=== PATIENT | male | born 1950 | race Hispanic/Latino ===

== ENCOUNTER 2024-08-02 18:39 | Inpatient (IN) | payer MEDICAID, SELFPAY ==
[~2024-08-02 18:39] MED LIST: Iopamidol-370 76% 500 ML MDV (1 ML CHARGE) ONE
[2024-08-02 19:14] LABS: %Eosinophils 3.1 % (0.0-10.0); %Lymphocytes 43.5 % (21.0-51.0); %Monocytes 6.8 % (0.0-10.0); %Neutrophils 43.6 % (42.0-75.0); Hematocrit 36.2 % (42.0-52.0); Hemoglobin 12.5 g/dL (14.0-18.0); Mean Corpuscular HGB CONC 34.5 g/dL (32.0-36.0); Mean Corpuscular Volume 104.3 fL (78.0-98.0); Mean Platelet Volume 10.5 fL (7.4-10.4); Platelet Count 206 10x3/uL (130-400); RBC Distribution Width 12.1 % (11.5-14.5); Red Blood Cell (RBC) Count 3.47 mill/uL (4.70-6.10)
[2024-08-02 19:26] LABS: Alcohol 270.2 mg/dL (Less than 10)
[2024-08-02 19:27] LABS: INR-International Normal Ratio 1.2; PTT 30.9 sec (22.9-36.1); Prothrombin Time 15.5 sec (12.0-14.7)
[2024-08-02] MEDS ORDERED: fentaNYL 50 mcg/mL 1 mL Vial ONE (19:28)
[2024-08-02 19:29] LABS: ALT (SGPT) 32 U/L (8-55); AST (SGOT) 67 U/L (5-34); Albumin 3.5 g/dL (3.4-4.8); Alkaline Phosphatase 95 U/L (40-110); Anion Gap 16 mmol/L (10-20); BUN (Urea Nitrogen) 5 mg/dL (8.4-25.7); Bilirubin, Total 0.5 mg/dL (0.2-1.2); Calc. Creatinine Clearance 0 mL/min (70-130); Calcium 8.2 mg/dL (7.8-10.44); Carbon Dioxide 20 mmol/L (23-31); Chloride 100 mmol/L (98-107); Estimated GFR 69; Glucose 119 mg/dL (83-110); Lipase 35 U/L (8-78); Potassium 2.9 mmol/L (3.5-5.1); Protein, Total 7.5 g/dL (5.8-8.1); Sodium 133 mmol/L (136-145)
[2024-08-02 19:33] LABS: Troponin I Less than 0.010 ng/mL (< 0.028)
[2024-08-02] MEDS ORDERED: CEFAZOLIN 2 GM VIAL ONE (19:33)
[2024-08-02] MEDS ORDERED: Boostrix 0.5 ML (Tdap) VIAL (>/=7 yrs of age) ONE (19:39)
[2024-08-02 19:52] LABS: Bacteria/HPF None Seen HPF (None Seen); Bilirubin Negative (Negative); Blood, Urine Trace (Negative); CAUTI Indications for Culture Spinal Cord Injury; Clarity Clear (Clear); Glucose, Urine (Dipstick) Normal (Negative); Ketone, Urine Negative (Negative); Leukocyte Negative Leu/uL (Negative); Nitrite Negative (Negative); Protein, Urine (Dipstick) Negative (Neg-Trace); RBC/HPF None Seen HPF (0-3); Squamous Epithelial None Seen HPF (0-3); Urobilinogen Normal mg/dL (Less than 2); WBC/HPF None Seen HPF (0-3); pH, Urine 5.5 (5.0-9.0)
[2024-08-02 19:53] LABS: Specific Gravity, Urine 1.002 (1.002-1.036); Urine Culture Reflex No No
[2024-08-02 19:57] LABS: Amphetamine Not Detected (NotDetected); Barbiturates Screen Not Detected (NotDetected); Benzodiazepine Screen Not Detected (NotDetected); Cocaine Metabolite Screen Not Detected (NotDetected); Methadone Not Detected (NotDetected); Methamphetamine Not Detected (NotDetected); Opiate Screen Not Detected (NotDetected); Oxycodone Screen Not Detected (NotDetected); Phencyclidine (PCP) Not Detected (NotDetected); THC/Cannabinoid Screen Not Detected (NotDetected); Tricyclic Screen Not Detected (NotDetected)
[2024-08-02] MEDS ORDERED: Insulin Regular, Human 100 UNIT/ML 10 ML VIAL SC PRN (21:03)
[2024-08-02] MEDS ORDERED: Dextrose 5% in Water 1,000 ML IV PRN (21:03)
[2024-08-02] MEDS ORDERED: Insulin Lispro 100 UNIT/ML 10 ML VIAL SC PRN (21:03)
[2024-08-02] MEDS ORDERED: Ondansetron PF 4 MG/2 ML Vial IVP PRN (21:03)
[2024-08-02] MEDS ORDERED: Glucagon 1 MG/ML KIT IM PRN (21:03)
[2024-08-02] MEDS ORDERED: Acetaminophen 325 MG TAB PO PRN (21:03)
[2024-08-02] MEDS ORDERED: NOREPINEPHRINE 8 MG/250 ML-D5W 250 ML ONE (21:23)
[2024-08-02 22:24] LABS: #Basophils 0.04 10x3/uL (0.0-0.2); #Eosinophils Less than 0.03 10x3/uL (0.0-0.7); %Basophils 0.3 % (0.0-1.0); %Eosinophils 0.1 % (0.0-10.0); %Lymphocytes 6.3 % (21.0-51.0); %Monocytes 8.9 % (0.0-10.0); %Neutrophils 83.3 % (42.0-75.0); Hematocrit 22.6 % (42.0-52.0); Hemoglobin 7.8 g/dL (14.0-18.0); Mean Corpuscular HGB CONC 34.5 g/dL (32.0-36.0); Mean Corpuscular Hemoglobin 35.3 pg (27.0-31.0); Mean Corpuscular Volume 102.3 fL (78.0-98.0); Mean Platelet Volume 10.6 fL (7.4-10.4); Platelet Count 121 10x3/uL (130-400); RBC Distribution Width 14.2 % (11.5-14.5); Red Blood Cell (RBC) Count 2.21 mill/uL (4.70-6.10)
[2024-08-02 22:33] LABS: INR-International Normal Ratio 1.4; Prothrombin Time 16.7 sec (12.0-14.7)
[2024-08-02 22:43] LABS: Anisocytosis SLIGHT = 6-15 cells HPF (0-5); Burr Cells SLIGHT = 2-5 cells HPF (0-1); Macrocytosis SLIGHT = 6-15 cells HPF (0-5); Platelet Adequacy Comment Platelets Decreased
[2024-08-02 22:53] LABS: Troponin I Less than 0.010 ng/mL (< 0.028)
[2024-08-02 23:05] LABS: Anion Gap 17 mmol/L (10-20); Calcium 7.1 mg/dL (7.8-10.44); Carbon Dioxide 16 mmol/L (23-31); Chloride 102 mmol/L (98-107); Potassium 2.8 mmol/L (3.5-5.1); Sodium 132 mmol/L (136-145)
[2024-08-02 23:28] LABS: Alcohol 168.9 mg/dL (Less than 10)
[2024-08-02 23:44] LABS: ALT (SGPT) 21 U/L (8-55); AST (SGOT) 59 U/L (5-34); Albumin 2.4 g/dL (3.4-4.8); Alkaline Phosphatase 54 U/L (40-110); BUN (Urea Nitrogen) 6 mg/dL (8.4-25.7); Bilirubin, Total 0.5 mg/dL (0.2-1.2); Calc. Creatinine Clearance 0 mL/min (70-130); Estimated GFR 99; Globulin 2.3 g/dL (2.4-3.5); Glucose 185 mg/dL (83-110); Lipase 25 U/L (8-78); Protein, Total 4.7 g/dL (5.8-8.1)
[2024-08-03] MEDS ORDERED: Electrolyte Replacement Protocol 1 EACH FS SCH ×2 (01:15→08:30)
[2024-08-03] MEDS: Morphine 2 MG/ML VIAL SLOW IVP PRN ×2 (01:26→23:42)
[2024-08-03] MEDS: Sodium Chloride 0.9% 1,000 ML IV SCH (01:48)
[2024-08-03] MEDS: Albumin 25% 25 GM (100 mL) BOT IVPB SCH (01:48)
[2024-08-03] MEDS: Potassium Chloride 20 MEQ in Premix 1 BAG IVPB SCH (01:58)
[2024-08-03 03:43] LABS: Hematocrit 22.3 % (42.0-52.0); Hemoglobin 7.7 g/dL (14.0-18.0); Mean Corpuscular HGB CONC 34.5 g/dL (32.0-36.0); Mean Corpuscular Hemoglobin 33.6 pg (27.0-31.0); Mean Corpuscular Volume 97.4 fL (78.0-98.0); Platelet Count 108 10x3/uL (130-400); RBC Distribution Width 15.9 % (11.5-14.5); Red Blood Cell (RBC) Count 2.29 mill/uL (4.70-6.10)
[2024-08-03 04:06] LABS: Anion Gap 22 mmol/L (10-20); BUN (Urea Nitrogen) 7 mg/dL (8.4-25.7); Calc. Creatinine Clearance 66 mL/min (70-130); Calcium 7.7 mg/dL (7.8-10.44); Carbon Dioxide 15 mmol/L (23-31); Chloride 101 mmol/L (98-107); Estimated GFR 92; Glucose 181 mg/dL (83-110); Potassium 3.1 mmol/L (3.5-5.1); Sodium 135 mmol/L (136-145)
[2024-08-03 04:17] LABS: Band 22 % (5-11); Lymphocytes 1 % (21-51); Monocytes 3 % (0-10); Myelocyte 1 % (0-0); Neutrophil 74 % (42-75); Platelet Adequacy Comment Platelets Decreased; RBC Morphology Within Normal Limits
[2024-08-03] MEDS ORDERED: NOREPINEPHRINE 8 MG/250 ML-D5W 250 ML IVPB SCH (06:30)
[2024-08-03] MEDS ORDERED: Lorazepam 1 MG TAB PO PRN (08:19)
[2024-08-03] MEDS ORDERED: Ondansetron ODT 4 MG TAB PO PRN (08:19)
[2024-08-03] MEDS ORDERED: Lorazepam 2 MG/ML VIAL IM PRN (08:19)
[2024-08-03] MEDS ORDERED: Electrolyte Replacement Protocol FS PRN (08:30)
[2024-08-03] MEDS: Multivit, Therapeutic 1 TAB PO SCH (09:55)
[2024-08-03] MEDS: Folic Acid 1 MG TAB PO SCH (09:55)
[2024-08-03] MEDS: traMADol HCl 50 MG TAB PO PRN (09:55)
[2024-08-03] MEDS: FLU (Fluad Triv) TS24-25 (65UP)/MF59C/PF 45 MCG/0.5 ML Syringe IM ONE (09:56)
[2024-08-03] MEDS: Thiamine HCl 200 MG/2 ML VIAL SLOW IVP SCH (09:56)
[2024-08-03] MEDS: Ketorolac Tromethamine 30 MG (1 mL) VIAL IVP SCH (11:06)
[2024-08-03 11:51] LABS: ALT (SGPT) 23 U/L (8-55); AST (SGOT) 64 U/L (5-34); Albumin 3.2 g/dL (3.4-4.8); Alkaline Phosphatase 56 U/L (40-110); Anion Gap 15 mmol/L (10-20); BUN (Urea Nitrogen) 7 mg/dL (8.4-25.7); Bilirubin, Direct 0.5 mg/dL (0.1-0.3); Bilirubin, Total 1.3 mg/dL (0.2-1.2); Calc. Creatinine Clearance 75 mL/min (70-130); Calcium 7.6 mg/dL (7.8-10.44); Carbon Dioxide 20 mmol/L (23-31); Chloride 106 mmol/L (98-107); Estimated GFR 96; Globulin 2.3 g/dL (2.4-3.5); Glucose 180 mg/dL (83-110); Magnesium 1.6 mg/dL (1.6-2.6); Protein, Total 5.5 g/dL (5.8-8.1); Sodium 136 mmol/L (136-145)
[2024-08-03] MEDS: Pantoprazole 40 MG VIAL IVP SCH (12:32)
[2024-08-03 12:52] LABS: Hematocrit 21.8 % (42.0-52.0); Hemoglobin 7.6 g/dL (14.0-18.0); Mean Corpuscular HGB CONC 34.9 g/dL (32.0-36.0); Mean Corpuscular Hemoglobin 32.9 pg (27.0-31.0); Mean Corpuscular Volume 94.4 fL (78.0-98.0); Mean Platelet Volume 11.1 fL (7.4-10.4); Platelet Count 77 10x3/uL (130-400); RBC Distribution Width 17.2 % (11.5-14.5); Red Blood Cell (RBC) Count 2.31 mill/uL (4.70-6.10)
[2024-08-03 12:54] LABS: Anisocytosis SLIGHT = 6-15 cells HPF (0-5); Band 21 % (5-11); Burr Cells SLIGHT = 2-5 cells HPF (0-1); Lymphocytes 9 % (21-51); Monocytes 9 % (0-10); Neutrophil 61 % (42-75); Platelet Adequacy Comment Platelets Decreased; Smudge Cells 14.2 %
[2024-08-03] MEDS: Magnesium 2 GM/50 ML(in water) 2 GM in Premix 1 BAG IVPB SCH (13:12)
[2024-08-03 14:25] LABS: Hematocrit 23.5 % (42.0-52.0); Hemoglobin 7.9 g/dL (14.0-18.0); Mean Corpuscular HGB CONC 33.6 g/dL (32.0-36.0); Mean Corpuscular Volume 95.1 fL (78.0-98.0); Mean Platelet Volume 11.1 fL (7.4-10.4); Platelet Count 79 10x3/uL (130-400); Red Blood Cell (RBC) Count 2.47 mill/uL (4.70-6.10)
[2024-08-03 14:49] LABS: Anisocytosis SLIGHT = 6-15 cells HPF (0-5); Band 17 % (5-11); Burr Cells SLIGHT = 2-5 cells HPF (0-1); Large Platelets 0.9 % (0-5); Lymphocytes 12 % (21-51); Monocytes 8 % (0-10); Neutrophil 62 % (42-75); Platelet Adequacy Comment Platelets Decreased; Polychromasia SLIGHT = 2-3 cells HPF (0-2); Reactive Lymphocytes 1 % (0-10); Smudge Cells 3.7 %
[2024-08-03 19:14] LABS: Hematocrit 18.1 % (42.0-52.0); Hemoglobin 6.3 g/dL (14.0-18.0); Mean Corpuscular HGB CONC 34.8 g/dL (32.0-36.0); Mean Corpuscular Hemoglobin 32.5 pg (27.0-31.0); Mean Corpuscular Volume 93.3 fL (78.0-98.0); Mean Platelet Volume 11.7 fL (7.4-10.4); Platelet Count 73 10x3/uL (130-400); RBC Distribution Width 18.5 % (11.5-14.5); Red Blood Cell (RBC) Count 1.94 mill/uL (4.70-6.10)
[2024-08-03 19:33] LABS: Band 23 % (5-11); Burr Cells SLIGHT = 2-5 cells HPF (0-1); Large Platelets 3.8 % (0-5); Lymphocytes 15 % (21-51); Monocytes 6 % (0-10); Neutrophil 56 % (42-75); Platelet Adequacy Comment Platelets Decreased; Smudge Cells 1.9 %
[2024-08-04] MEDS: Dexmedetomidine In 0.9 % NaCl 100 ML IVPB SCH (02:23)
[2024-08-04] MEDS: Lorazepam 2 MG/ML VIAL SLOW IVP PRN (02:26)
[2024-08-04 05:14] LABS: ALT (SGPT) 25 U/L (8-55); AST (SGOT) 75 U/L (5-34); Albumin 2.9 g/dL (3.4-4.8); Alkaline Phosphatase 50 U/L (40-110); Anion Gap 9 mmol/L (10-20); BUN (Urea Nitrogen) 11 mg/dL (8.4-25.7); Bilirubin, Total 1.7 mg/dL (0.2-1.2); Calc. Creatinine Clearance 95 mL/min (70-130); Calcium 7.4 mg/dL (7.8-10.44); Carbon Dioxide 22 mmol/L (23-31); Chloride 110 mmol/L (98-107); Estimated GFR 102; Globulin 2.2 g/dL (2.4-3.5); Glucose 116 mg/dL (83-110); Potassium 4.2 mmol/L (3.5-5.1); Protein, Total 5.1 g/dL (5.8-8.1); Sodium 137 mmol/L (136-145)
[2024-08-04] MEDS: Lidocaine 1% (PF) 30 ML VIAL FS SCH (06:14)
[2024-08-04] MEDS: Lidocaine 1% (PF) 30 ML VIAL ONE (06:14)
[2024-08-04 06:20] LABS: Hematocrit 19.3 % (42.0-52.0); Hemoglobin 6.5 g/dL (14.0-18.0); Mean Corpuscular HGB CONC 33.7 g/dL (32.0-36.0); Mean Corpuscular Hemoglobin 29.4 pg (27.0-31.0); Mean Corpuscular Volume 87.3 fL (78.0-98.0); Mean Platelet Volume 11.1 fL (7.4-10.4); Platelet Count 62 10x3/uL (130-400); RBC Distribution Width 23.9 % (11.5-14.5); Red Blood Cell (RBC) Count 2.21 mill/uL (4.70-6.10)
[2024-08-04 06:56] LABS: Anisocytosis SLIGHT = 6-15 cells HPF (0-5); Band 23 % (5-11); Eosinophils 2 % (0-10); Lymphocytes 5 % (21-51); Macrocytosis SLIGHT = 6-15 cells HPF (0-5); Monocytes 3 % (0-10); Neutrophil 66 % (42-75); Nucleated RBC (Manual Ct) 1 % (0); Platelet Adequacy Comment Platelets Decreased; Polychromasia SLIGHT = 2-3 cells HPF (0-2); Smudge Cells 8.7 %
[2024-08-04] MEDS ORDERED: Lorazepam 1 MG TAB PO PRN (08:19)
[2024-08-04] MEDS ORDERED: Folic Acid 5 MG/ML MDV SC SCH (09:00)
[2024-08-04 09:33] LABS: #Basophils Less than 0.03 10x3/uL (0.0-0.2); %Basophils 0.3 % (0.0-1.0); %Eosinophils 0.6 % (0.0-10.0); %Lymphocytes 13.2 % (21.0-51.0); %Monocytes 8.5 % (0.0-10.0); %Neutrophils 76.9 % (42.0-75.0); Hematocrit 18.4 % (42.0-52.0); Hemoglobin 6.2 g/dL (14.0-18.0); Mean Corpuscular HGB CONC 33.7 g/dL (32.0-36.0); Mean Corpuscular Hemoglobin 29.7 pg (27.0-31.0); Mean Platelet Volume 10.6 fL (7.4-10.4); Platelet Count 64 10x3/uL (130-400); Red Blood Cell (RBC) Count 2.09 mill/uL (4.70-6.10)
[2024-08-04] MEDS: Folic Acid 0.4 MG in Admixture Fee 1 EACH SC SCH (11:51)
[2024-08-04 14:38] LABS: Hematocrit 26.7 % (42.0-52.0); Hemoglobin 9.2 g/dL (14.0-18.0); Mean Corpuscular HGB CONC 34.5 g/dL (32.0-36.0); Mean Corpuscular Hemoglobin 30.2 pg (27.0-31.0); Mean Corpuscular Volume 87.5 fL (78.0-98.0); Mean Platelet Volume 10.7 fL (7.4-10.4); Platelet Count 66 10x3/uL (130-400); RBC Distribution Width 21.2 % (11.5-14.5); Red Blood Cell (RBC) Count 3.05 mill/uL (4.70-6.10)
[2024-08-04 14:48] LABS: INR-International Normal Ratio 1.3; PTT 34.4 sec (22.9-36.1); Prothrombin Time 15.7 sec (12.0-14.7)
[2024-08-04 15:02] LABS: Anisocytosis SLIGHT = 6-15 cells HPF (0-5); Band 11 % (5-11); Burr Cells SLIGHT = 2-5 cells HPF (0-1); Eosinophils 1 % (0-10); Lymphocytes 13 % (21-51); Monocytes 7 % (0-10); Myelocyte 1 % (0-0); Neutrophil 67 % (42-75); Platelet Adequacy Comment Platelets Decreased; Polychromasia SLIGHT = 2-3 cells HPF (0-2); Reactive Lymphocytes 1 % (0-10)
[2024-08-05] MEDS: Morphine 2 MG/ML VIAL SLOW IVP SCH (04:04)
[2024-08-05 05:58] LABS: Hematocrit 23.6 % (42.0-52.0); Hemoglobin 8.2 g/dL (14.0-18.0); Mean Corpuscular HGB CONC 34.7 g/dL (32.0-36.0); Mean Corpuscular Hemoglobin 30.7 pg (27.0-31.0); Mean Corpuscular Volume 88.4 fL (78.0-98.0); Mean Platelet Volume 11.3 fL (7.4-10.4); Platelet Count 71 10x3/uL (130-400); RBC Distribution Width 20.9 % (11.5-14.5); Red Blood Cell (RBC) Count 2.67 mill/uL (4.70-6.10)
[2024-08-05 06:02] LABS: Anion Gap 12 mmol/L (10-20); BUN (Urea Nitrogen) 9 mg/dL (8.4-25.7); Calc. Creatinine Clearance 97 mL/min (70-130); Calcium 7.6 mg/dL (7.8-10.44); Carbon Dioxide 20 mmol/L (23-31); Chloride 111 mmol/L (98-107); Estimated GFR 102; Glucose 99 mg/dL (83-110); Phosphorus 2.2 mg/dL (2.3-4.7); Potassium 4.2 mmol/L (3.5-5.1); Sodium 139 mmol/L (136-145)
[2024-08-05 06:24] LABS: Anisocytosis MARKED = >30 cells HPF (0-5); Band 18 % (5-11); Burr Cells SLIGHT = 2-5 cells HPF (0-1); Eosinophils 2 % (0-10); Large Platelets 2.9 % (0-5); Lymphocytes 13 % (21-51); Macrocytosis MODERATE=16-30 cells HPF (0-5); Metamyelocyte 1 % (0-0); Monocytes 7 % (0-10); Neutrophil 60 % (42-75); Nucleated RBC (Manual Ct) 1 % (0); Ovalocytes SLIGHT = 2-5 cells HPF (0-1); Platelet Adequacy Comment Platelets Decreased; Polychromasia MODERATE = 3-4 cells HPF (0-2)
[2024-08-05] MEDS: Magnesium 2 GM/50 ML(in water) 2 GM in Premix 1 BAG IVPB SCH (07:33)
[2024-08-05] MEDS ORDERED: Lorazepam 0.5 MG TAB PO SCH (08:30)
[2024-08-05 12:45] LABS: Hematocrit 23.3 % (42.0-52.0); Hemoglobin 7.9 g/dL (14.0-18.0); Mean Corpuscular HGB CONC 33.9 g/dL (32.0-36.0); Mean Corpuscular Hemoglobin 30.9 pg (27.0-31.0); Mean Platelet Volume 11.3 fL (7.4-10.4); Platelet Count 86 10x3/uL (130-400); RBC Distribution Width 21.1 % (11.5-14.5); Red Blood Cell (RBC) Count 2.56 mill/uL (4.70-6.10)
[2024-08-05 13:16] LABS: Anisocytosis MODERATE=16-30 cells HPF (0-5); Band 26 % (5-11); Burr Cells SLIGHT = 2-5 cells HPF (0-1); Eosinophils 1 % (0-10); Lymphocytes 7 % (21-51); Monocytes 2 % (0-10); Neutrophil 62 % (42-75); Platelet Adequacy Comment Platelets Decreased; Polychromasia MODERATE = 3-4 cells HPF (0-2)
[2024-08-05] MEDS: Sodium Chloride 0.45% 1,000 ML IV SCH (22:09)
[2024-08-05] MEDS: Cyclobenzaprine 10 MG TAB PO PRN (23:26)
[2024-08-06 06:07] LABS: #Basophils Less than 0.03 10x3/uL (0.0-0.2); #Eosinophils Less than 0.03 10x3/uL (0.0-0.7)
[2024-08-06 07:01] LABS: Potassium 2.9 mmol/L (3.5-5.1); Sodium 139 mmol/L (136-145)
[2024-08-06 07:02] LABS: Anion Gap 13 mmol/L (10-20); BUN (Urea Nitrogen) 8 mg/dL (8.4-25.7); Calc. Creatinine Clearance 120 mL/min (70-130); Carbon Dioxide 18 mmol/L (23-31); Chloride 111 mmol/L (98-107)
[2024-08-06 07:03] LABS: Calcium 7.3 mg/dL (7.8-10.44); Estimated GFR 108; Glucose 74 mg/dL (83-110)
[2024-08-06 07:25] LABS: White Blood Cell (WBC) Count 6.01 10x3/uL (4.8-10.8)
[2024-08-06 07:26] LABS: Hemoglobin 7.3 g/dL (14.0-18.0); Red Blood Cell (RBC) Count 2.38 mill/uL (4.70-6.10)
[2024-08-06 07:27] LABS: Hematocrit 21.8 % (42.0-52.0); Mean Corpuscular HGB CONC 33.5 g/dL (32.0-36.0); Mean Corpuscular Hemoglobin 30.7 pg (27.0-31.0); Mean Corpuscular Volume 91.6 fL (78.0-98.0); RBC Distribution Width 20.7 % (11.5-14.5)
[2024-08-06 07:28] LABS: %Lymphocytes 10.3 % (21.0-51.0); %Neutrophils 76.8 % (42.0-75.0); Platelet Count 103 10x3/uL (130-400)
[2024-08-06 07:29] LABS: %Basophils 0.3 % (0.0-1.0); %Eosinophils 0.5 % (0.0-10.0); %Monocytes 11.1 % (0.0-10.0)
[2024-08-06 07:30] LABS: #Monocytes 0.67 10x3/uL (0.11-0.59); #Neutrophils 4.61 10x3/uL (1.40-6.50)
[2024-08-06] MEDS: Potassium Chloride 20 MEQ in Premix 1 BAG IVPB SCH (07:33)
[2024-08-06] MEDS ORDERED: Potassium Chloride 20 MEQ in Premix 1 BAG IVPB SCH (07:45)
[2024-08-06] MEDS ORDERED: Lorazepam 0.5 MG TAB PO PRN (08:19)
[2024-08-06 08:51] LABS: Hematocrit 22.9 % (42.0-52.0); Hemoglobin 7.6 g/dL (14.0-18.0); Mean Corpuscular HGB CONC 33.2 g/dL (32.0-36.0); Mean Corpuscular Hemoglobin 30.9 pg (27.0-31.0); Mean Corpuscular Volume 93.1 fL (78.0-98.0); Mean Platelet Volume 11.3 fL (7.4-10.4); Platelet Count 111 10x3/uL (130-400); RBC Distribution Width 20.7 % (11.5-14.5); Red Blood Cell (RBC) Count 2.46 mill/uL (4.70-6.10)
[2024-08-06] MEDS ORDERED: Thiamine 100 MG TAB PO SCH (09:00)
[2024-08-06 09:13] LABS: Anisocytosis MODERATE=16-30 cells HPF (0-5); Band 39 % (5-11); Lymphocytes 12 % (21-51); Monocytes 9 % (0-10); Neutrophil 41 % (42-75); Nucleated RBC (Manual Ct) 1 % (0); Ovalocytes SLIGHT = 2-5 cells HPF (0-1); Platelet Adequacy Comment Platelets Decreased; Polychromasia MODERATE = 3-4 cells HPF (0-2)
[2024-08-06] MEDS: Sodium Chloride 0.45% 1,000 ML IV SCH (09:56)
[2024-08-06] MEDS: Lactulose 20 GM (30 mL) UDCUP PO SCH (09:56)
[2024-08-06] MEDS: Polyethylene Glycol 3350 17 GM Packet PO SCH (09:56)
[2024-08-06] MEDS: Senokot S 8.6-50 MG TAB PO SCH (09:57)
[2024-08-06] MEDS ORDERED: Lorazepam 2 MG/ML VIAL IM PRN (10:52)
[2024-08-06] MEDS ORDERED: Ondansetron ODT 4 MG TAB PO PRN (10:52)
[2024-08-06] MEDS ORDERED: Lorazepam 1 MG TAB PO PRN (10:52)
[2024-08-06] MEDS ORDERED: Electrolyte Replacement Protocol 1 EACH FS SCH (11:00)
[2024-08-06 11:42] LABS: #Basophils 0.04 10x3/uL (0.0-0.2); %Basophils 0.6 % (0.0-1.0); %Eosinophils 1.1 % (0.0-10.0); %Lymphocytes 14.5 % (21.0-51.0); %Monocytes 11.8 % (0.0-10.0); %Neutrophils 71.1 % (42.0-75.0); Hematocrit 24.2 % (42.0-52.0); Hemoglobin 7.8 g/dL (14.0-18.0); Mean Corpuscular HGB CONC 32.2 g/dL (32.0-36.0); Mean Corpuscular Hemoglobin 30.8 pg (27.0-31.0); Mean Corpuscular Volume 95.7 fL (78.0-98.0); Platelet Count 112 10x3/uL (130-400); RBC Distribution Width 20.8 % (11.5-14.5); Red Blood Cell (RBC) Count 2.53 mill/uL (4.70-6.10)
[2024-08-06] MEDS: Lorazepam 1 MG TAB PO SCH (11:46)
[2024-08-06] MEDS: Thiamine HCl 200 MG/2 ML VIAL SLOW IVP SCH (11:47)
[2024-08-06 11:55] LABS: ALT (SGPT) 26 U/L (8-55); AST (SGOT) 56 U/L (5-34); Albumin 2.5 g/dL (3.4-4.8); Alkaline Phosphatase 56 U/L (40-110); Anion Gap 12 mmol/L (10-20); BUN (Urea Nitrogen) 9 mg/dL (8.4-25.7); Bilirubin, Direct 0.9 mg/dL (0.1-0.3); Bilirubin, Total 1.8 mg/dL (0.2-1.2); Calc. Creatinine Clearance 120 mL/min (70-130); Calcium 7.4 mg/dL (7.8-10.44); Carbon Dioxide 17 mmol/L (23-31); Chloride 111 mmol/L (98-107); Estimated GFR 108; Globulin 2.8 g/dL (2.4-3.5); Glucose 71 mg/dL (83-110); Phosphorus 2.8 mg/dL (2.3-4.7); Potassium 3.7 mmol/L (3.5-5.1); Protein, Total 5.3 g/dL (5.8-8.1); Sodium 136 mmol/L (136-145)
[2024-08-06] MEDS: Magnesium 2 GM/50 ML(in water) 2 GM in Premix 1 BAG IVPB SCH (15:24)
[2024-08-06] MEDS: Dextrose 50% Abboject 50 ML SYRINGE SLOW IVP PRN (17:23)
[2024-08-06 17:27] LABS: Hematocrit 25.1 % (42.0-52.0); Hemoglobin 8.4 g/dL (14.0-18.0); Mean Corpuscular HGB CONC 33.5 g/dL (32.0-36.0); Mean Corpuscular Hemoglobin 31.1 pg (27.0-31.0); Mean Platelet Volume 10.8 fL (7.4-10.4); Platelet Count 125 10x3/uL (130-400); RBC Distribution Width 21.1 % (11.5-14.5)
[2024-08-06 17:38] LABS: INR-International Normal Ratio 1.3; PTT 34.3 sec (22.9-36.1)
[2024-08-06] MEDS ORDERED: Dextrose 5 %-0.45 % NaCl 1,000 ML IV SCH (18:00)
[2024-08-06 18:32] LABS: ALT (SGPT) 26 U/L (8-55); AST (SGOT) 60 U/L (5-34); Albumin 2.8 g/dL (3.4-4.8); Alkaline Phosphatase 65 U/L (40-110); Anion Gap 15 mmol/L (10-20); BUN (Urea Nitrogen) 9 mg/dL (8.4-25.7); Bilirubin, Total 2.5 mg/dL (0.2-1.2); Calc. Creatinine Clearance 120 mL/min (70-130); Calcium 7.9 mg/dL (7.8-10.44); Carbon Dioxide 16 mmol/L (23-31); Chloride 110 mmol/L (98-107); Estimated GFR 108; Globulin 3.2 g/dL (2.4-3.5); Glucose 80 mg/dL (83-110); Potassium 3.9 mmol/L (3.5-5.1); Sodium 137 mmol/L (136-145)
[2024-08-06 18:55] LABS: Anisocytosis MODERATE=16-30 cells HPF (0-5); Band 42 % (5-11); Burr Cells SLIGHT = 2-5 cells HPF (0-1); Eosinophils 2 % (0-10); Hypochromia SLIGHT = 6-15 cells HPF (0-5); Large Platelets 4.9 % (0-5); Lymphocytes 11 % (21-51); Macrocytosis SLIGHT = 6-15 cells HPF (0-5); Monocytes 7 % (0-10); Neutrophil 38 % (42-75); Ovalocytes SLIGHT = 2-5 cells HPF (0-1); Platelet Adequacy Comment Platelets Decreased; Polychromasia MODERATE = 3-4 cells HPF (0-2); Reflex for Review?? YES; Target Cells SLIGHT = 2-5 cells HPF (0-1)
[2024-08-06] MEDS: Dextrose 5%-Lactated Ringers 1,000 ML IV SCH (22:19)
[2024-08-07] MEDS: Dexmedetomidine In 0.9 % NaCl 100 ML IVPB SCH (00:35)
[2024-08-07 04:02] LABS: Hematocrit 20.5 % (42.0-52.0); Hemoglobin 6.9 g/dL (14.0-18.0); Mean Corpuscular HGB CONC 33.7 g/dL (32.0-36.0); Mean Corpuscular Hemoglobin 30.9 pg (27.0-31.0); Mean Corpuscular Volume 91.9 fL (78.0-98.0); Mean Platelet Volume 10.1 fL (7.4-10.4); Platelet Count 134 10x3/uL (130-400); Red Blood Cell (RBC) Count 2.23 mill/uL (4.70-6.10)
[2024-08-07 04:12] LABS: Anion Gap 10 mmol/L (10-20); BUN (Urea Nitrogen) 6 mg/dL (8.4-25.7); Calc. Creatinine Clearance 94 mL/min (70-130); Calcium 7.8 mg/dL (7.8-10.44); Carbon Dioxide 21 mmol/L (23-31); Chloride 111 mmol/L (98-107); Estimated GFR 100; Glucose 171 mg/dL (83-110); Potassium 3.1 mmol/L (3.5-5.1); Sodium 139 mmol/L (136-145)
[2024-08-07 04:51] LABS: Anisocytosis SLIGHT = 6-15 cells HPF (0-5); Band 26 % (5-11); Eosinophils 2 % (0-10); Hypochromia SLIGHT = 6-15 cells HPF (0-5); Large Platelets 5.1 % (0-5); Lymphocytes 13 % (21-51); Monocytes 8 % (0-10); Neutrophil 48 % (42-75); Nucleated RBC (Manual Ct) 1 % (0); Platelet Adequacy Comment Platelets Normal; Polychromasia SLIGHT = 2-3 cells HPF (0-2); Promyelocytes 2 % (0-0)
[2024-08-07] MEDS: Metoclopramide HCl 10 MG (2 mL) VIAL IVP SCH (05:29)
[2024-08-07] MEDS: Multivit, Therapeutic 1 TAB PO SCH (08:12)
[2024-08-07] MEDS: Potassium Chloride 20 MEQ in Premix 1 BAG IVPB SCH ×2 (08:12→22:25)
[2024-08-07] MEDS: Thiamine HCl 200 MG/2 ML VIAL SLOW IVP SCH (08:13)
[2024-08-07] MEDS: Folic Acid 1 MG TAB PO SCH (08:14)
[2024-08-07] MEDS ORDERED: Enoxaparin 40 MG (0.4 mL) SYRINGE SC SCH (09:00)
[2024-08-07] MEDS ORDERED: Lidocaine 1% w/Epinephrine 1:100K 20 ML VIAL IJ SCH (09:15)
[2024-08-07] MEDS ORDERED: Lorazepam 1 MG TAB PO PRN (10:52)
[2024-08-07 13:08] LABS: #Basophils 0.04 10x3/uL (0.0-0.2); %Basophils 0.8 % (0.0-1.0); %Eosinophils 2.8 % (0.0-10.0); %Lymphocytes 16.2 % (21.0-51.0); %Monocytes 15.4 % (0.0-10.0); %Neutrophils 62.2 % (42.0-75.0); Hematocrit 25.6 % (42.0-52.0); Hemoglobin 8.9 g/dL (14.0-18.0); Mean Corpuscular HGB CONC 34.8 g/dL (32.0-36.0); Mean Corpuscular Hemoglobin 31.6 pg (27.0-31.0); Mean Corpuscular Volume 90.8 fL (78.0-98.0); Mean Platelet Volume 10.9 fL (7.4-10.4); Platelet Count 119 10x3/uL (130-400); RBC Distribution Width 18.9 % (11.5-14.5); Red Blood Cell (RBC) Count 2.82 mill/uL (4.70-6.10)
[2024-08-07] MEDS: hydrALAZINE 20 MG/ML VIAL SLOW IVP PRN (13:08)
[2024-08-07] MEDS: Scopolamine 1 mg/72 hour Patch TD SCH (13:09)
[2024-08-08 05:26] LABS: Hematocrit 26.1 % (42.0-52.0); Mean Corpuscular HGB CONC 34.5 g/dL (32.0-36.0); Mean Corpuscular Hemoglobin 31.5 pg (27.0-31.0); Mean Corpuscular Volume 91.3 fL (78.0-98.0); Mean Platelet Volume 10.8 fL (7.4-10.4); Platelet Count 129 10x3/uL (130-400); RBC Distribution Width 19.7 % (11.5-14.5); Red Blood Cell (RBC) Count 2.86 mill/uL (4.70-6.10)
[2024-08-08 05:27] LABS: Anion Gap 10 mmol/L (10-20); BUN (Urea Nitrogen) 4 mg/dL (8.4-25.7); Calc. Creatinine Clearance 109 mL/min (70-130); Calcium 7.9 mg/dL (7.8-10.44); Carbon Dioxide 23 mmol/L (23-31); Chloride 110 mmol/L (98-107); Estimated GFR 105; Glucose 150 mg/dL (83-110); Magnesium 1.7 mg/dL (1.6-2.6); Potassium 3.2 mmol/L (3.5-5.1); Sodium 140 mmol/L (136-145)
[2024-08-08 05:59] LABS: Anisocytosis SLIGHT = 6-15 cells HPF (0-5); Band 48 % (5-11); Eosinophils 1 % (0-10); Hypochromia SLIGHT = 6-15 cells HPF (0-5); Lymphocytes 15 % (21-51); Monocytes 7 % (0-10); Neutrophil 29 % (42-75); Nucleated RBC (Manual Ct) 2 % (0); Platelet Adequacy Comment Platelets Normal; Polychromasia MODERATE = 3-4 cells HPF (0-2)
[2024-08-08] MEDS: Furosemide 40 MG (4 mL) VIAL SLOW IVP SCH (08:22)
[2024-08-08] MEDS: HYDROcodone/Acetaminophen 5/325 mg Tablet PO PRN (08:23)
[2024-08-08] MEDS: Magnesium 2 GM/50 ML(in water) 2 GM in Premix 1 BAG IVPB SCH (08:23)
[2024-08-08] MEDS: Potassium Chloride 20 MEQ in Premix 1 BAG IVPB SCH ×2 (08:23→20:18)
[2024-08-08] MEDS: Lorazepam 0.5 MG TAB PO SCH (10:47)
[2024-08-08] MEDS ORDERED: Lorazepam 1 MG TAB PO PRN (10:52)
[2024-08-08 18:17] LABS: Anion Gap 10 mmol/L (10-20); BUN (Urea Nitrogen) 6 mg/dL (8.4-25.7); Calc. Creatinine Clearance 113 mL/min (70-130); Calcium 8.5 mg/dL (7.8-10.44); Carbon Dioxide 26 mmol/L (23-31); Chloride 106 mmol/L (98-107); Estimated GFR 106; Glucose 153 mg/dL (83-110); Sodium 139 mmol/L (136-145)
[2024-08-08] MEDS: Enoxaparin 40 MG (0.4 mL) SYRINGE SC SCH (20:18)
[2024-08-09 05:33] LABS: Anion Gap 12 mmol/L (10-20); BUN (Urea Nitrogen) 9 mg/dL (8.4-25.7); Calc. Creatinine Clearance 111 mL/min (70-130); Calcium 8.4 mg/dL (7.8-10.44); Carbon Dioxide 25 mmol/L (23-31); Chloride 107 mmol/L (98-107); Estimated GFR 106; Glucose 146 mg/dL (83-110); Potassium 3.5 mmol/L (3.5-5.1); Sodium 140 mmol/L (136-145)
[2024-08-09 05:38] LABS: Hematocrit 28.1 % (42.0-52.0); Hemoglobin 9.7 g/dL (14.0-18.0); Mean Corpuscular HGB CONC 34.5 g/dL (32.0-36.0); Mean Corpuscular Hemoglobin 31.9 pg (27.0-31.0); Mean Corpuscular Volume 92.4 fL (78.0-98.0); Platelet Count 164 10x3/uL (130-400); RBC Distribution Width 20.4 % (11.5-14.5); Red Blood Cell (RBC) Count 3.04 mill/uL (4.70-6.10)
[2024-08-09 06:21] LABS: Anisocytosis SLIGHT = 6-15 cells HPF (0-5); Band 34 % (5-11); Eosinophils 4 % (0-10); Large Platelets 6.8 % (0-5); Lymphocytes 10 % (21-51); Monocytes 10 % (0-10); Neutrophil 42 % (42-75); Platelet Adequacy Comment Platelets Normal; Polychromasia SLIGHT = 2-3 cells HPF (0-2); Reactive Lymphocytes 1 % (0-10)
[2024-08-09] MEDS: Potassium Chloride 20 MEQ in Premix 1 BAG IVPB SCH (07:54)
[2024-08-09] MEDS ORDERED: Thiamine 100 MG TAB PO SCH (11:00)
[2024-08-09] MEDS: Ipratropium/Albuterol 3 ML NEB NEB SCH (14:02)
[2024-08-09] MEDS: Acetylcysteine 20% 200 MG/ML 30 ML VIAL INH SCH (14:03)
[2024-08-09] MEDS: Metoprolol Tartrate 50 MG TAB PO SCH (15:52)
[2024-08-09] MEDS: Lorazepam 0.5 MG TAB PO PRN (22:13)
[2024-08-09] MEDS: Metoprolol Tartrate 5 MG (5 mL) VIAL IVP SCH (22:44)
[2024-08-09] MEDS: Labetalol HCl 100 MG/20 ML VIAL SLOW IVP PRN (23:38)
[2024-08-10] MEDS: niCARdipine 25 MG in Sodium Chloride 0.9% 250 ML 250 ML IVPB SCH (00:37)
[2024-08-10] MEDS: Ketorolac Tromethamine 30 MG (1 mL) VIAL IVP SCH (02:34)
[2024-08-10 05:15] LABS: Mean Corpuscular HGB CONC 33.3 g/dL (32.0-36.0); Mean Corpuscular Hemoglobin 31.1 pg (27.0-31.0); Mean Corpuscular Volume 93.4 fL (78.0-98.0); Mean Platelet Volume 9.9 fL (7.4-10.4); Platelet Count 197 10x3/uL (130-400); RBC Distribution Width 20.8 % (11.5-14.5); Red Blood Cell (RBC) Count 2.89 mill/uL (4.70-6.10)
[2024-08-10 05:19] LABS: Anion Gap 10 mmol/L (10-20); BUN (Urea Nitrogen) 12 mg/dL (8.4-25.7); Calc. Creatinine Clearance 107 mL/min (70-130); Calcium 8.2 mg/dL (7.8-10.44); Carbon Dioxide 26 mmol/L (23-31); Chloride 106 mmol/L (98-107); Estimated GFR 105; Glucose 157 mg/dL (83-110); Potassium 2.9 mmol/L (3.5-5.1); Sodium 139 mmol/L (136-145)
[2024-08-10] MEDS: Metoprolol Tartrate 5 MG (5 mL) VIAL IVP SCH (05:51)
[2024-08-10] MEDS: Pantoprazole 40 MG VIAL IVP SCH ×2 (05:52→19:35)
[2024-08-10 06:06] LABS: Anisocytosis SLIGHT = 6-15 cells HPF (0-5); Band 37 % (5-11); Hypochromia SLIGHT = 6-15 cells HPF (0-5); Lymphocytes 3 % (21-51); Monocytes 7 % (0-10); Neutrophil 53 % (42-75); Platelet Adequacy Comment Platelets Normal; Polychromasia MODERATE = 3-4 cells HPF (0-2)
[2024-08-10 06:42] VITALS: BMI 25.1
[2024-08-10] MEDS: Potassium Chloride 20 MEQ in Premix 1 BAG IVPB SCH ×2 (08:48→19:35)
[2024-08-10] MEDS ORDERED: Metoprolol Tartrate 50 MG TAB PO SCH (09:00)
[2024-08-10] MEDS: Metoclopramide HCl 10 MG (2 mL) VIAL IVP SCH ×2 (10:17→14:43)
[2024-08-10] MEDS: Enoxaparin 40 MG (0.4 mL) SYRINGE SC SCH (10:17)
[2024-08-10] MEDS: Amlodipine 10 MG TAB PER TUBE SCH (10:18)
[2024-08-10 16:47] LABS: Magnesium 1.9 mg/dL (1.6-2.6); Phosphorus 2.4 mg/dL (2.3-4.7)
[2024-08-10 16:48] LABS: Anion Gap 11 mmol/L (10-20); BUN (Urea Nitrogen) 12 mg/dL (8.4-25.7); Calc. Creatinine Clearance 101 mL/min (70-130); Calcium 8.4 mg/dL (7.8-10.44); Carbon Dioxide 25 mmol/L (23-31); Chloride 107 mmol/L (98-107); Estimated GFR 104; Glucose 116 mg/dL (83-110); Potassium 3.1 mmol/L (3.5-5.1); Sodium 140 mmol/L (136-145)
[2024-08-10] MEDS: niCARdipine 50 MG, Admixture Fee 1 EACH in Sodium Chloride 0.9% 250 ML 230 ML IVPB SCH (18:47)
[2024-08-10] MEDS: Magnesium 2 GM/50 ML(in water) 2 GM in Premix 1 BAG IVPB SCH (19:35)
[2024-08-11] MEDS: Acetaminophen 325 MG TAB PO PRN (01:06)
[2024-08-11 06:36] LABS: ALT (SGPT) 17 U/L (8-55); AST (SGOT) 40 U/L (5-34); Albumin 2.5 g/dL (3.4-4.8); Alkaline Phosphatase 93 U/L (40-110); Anion Gap 15 mmol/L (10-20); BUN (Urea Nitrogen) 13 mg/dL (8.4-25.7); Bilirubin, Total 2.5 mg/dL (0.2-1.2); Calc. Creatinine Clearance 101 mL/min (70-130); Calcium 8.2 mg/dL (7.8-10.44); Carbon Dioxide 23 mmol/L (23-31); Chloride 110 mmol/L (98-107); Estimated GFR 104; Globulin 3.7 g/dL (2.4-3.5); Glucose 123 mg/dL (83-110); Potassium 3.1 mmol/L (3.5-5.1); Protein, Total 6.2 g/dL (5.8-8.1); Sodium 145 mmol/L (136-145)
[2024-08-11 07:43] LABS: #Basophils 0.09 10x3/uL (0.0-0.2); #Eosinophils Less than 0.03 10x3/uL (0.0-0.7); %Basophils 0.6 % (0.0-1.0); %Eosinophils 0.1 % (0.0-10.0); %Lymphocytes 9.4 % (21.0-51.0); %Monocytes 11.5 % (0.0-10.0); %Neutrophils 77.3 % (42.0-75.0); Hematocrit 27.9 % (42.0-52.0); Mean Corpuscular HGB CONC 32.3 g/dL (32.0-36.0); Mean Corpuscular Hemoglobin 31.8 pg (27.0-31.0); Mean Corpuscular Volume 98.6 fL (78.0-98.0); Mean Platelet Volume 9.9 fL (7.4-10.4); Platelet Count 252 10x3/uL (130-400); RBC Distribution Width 21.4 % (11.5-14.5); Red Blood Cell (RBC) Count 2.83 mill/uL (4.70-6.10)
[2024-08-11] MEDS: Potassium Chloride 20 MEQ in Premix 1 BAG IVPB SCH (09:34)
[2024-08-11] MEDS ORDERED: Vancomycin 1 GM in Premix 1 BAG IVPB SCH (21:00)
[2024-08-11] MEDS: Cefepime 1 GM in Sodium Chloride 0.9% 100 ML IVPB SCH (21:16)
[2024-08-11] MEDS: Vancomycin (BATCH) 1.5 GM in Premix 1 BAG IVPB SCH (21:16)
[2024-08-13] MEDS ORDERED: Multivit, Therapeutic 1 TAB ONE (09:24)
[2024-08-13] MEDS ORDERED: Pantoprazole 40 MG VIAL ONE ×2 (09:24→23:40)
[2024-08-13] MEDS ORDERED: Multivits W-Minerals Liquid 15 ML UDCUP ONE (09:24)
[2024-08-13] MEDS ORDERED: Cefepime 2 GM VIAL ONE ×2 (09:24→23:40)
[2024-08-13] MEDS ORDERED: Metoprolol Tartrate 25 MG TAB ONE (09:24)
[2024-08-13] MEDS ORDERED: Vancomycin 1 GM/200 ML (FROZEN) BAG ONE ×2 (09:24→23:40)
[2024-08-13] MEDS ORDERED: Enoxaparin 40 MG (0.4 mL) SYRINGE ONE (09:24)
[2024-08-13] MEDS ORDERED: Folic Acid 1 MG TAB ONE (09:24)
[2024-08-13] MEDS ORDERED: Thiamine HCl 200 MG/2 ML VIAL ONE ×2 (09:24→23:40)
[2024-08-13] MEDS ORDERED: Amlodipine 10 MG TAB ONE (09:24)
[2024-08-13] MEDS ORDERED: Metoclopramide HCl 10 MG (2 mL) VIAL ONE ×2 (13:35→23:40)
[2024-08-13] MEDS: VANCOMYCIN 1.25 GM/250 ML BAG 1.25 GM in Premix 1 BAG IVPB SCH (16:31)
[2024-08-13] MEDS: Metoprolol Tartrate 50 MG TAB ONE ×2 (18:44→18:45)
[2024-08-13] MEDS: Cefepime 2 GM VIAL ONE ×2 (18:44→18:45)
[2024-08-13] MEDS: Sodium Chloride 0.9% 100 ML ONE ×2 (18:44→18:46)
[2024-08-13] MEDS: Vancomycin 1 GM/200 ML (FROZEN) BAG ONE ×2 (18:45→18:46)
[2024-08-14] MEDS ORDERED: Lorazepam 0.5 MG TAB ONE (02:07)
[2024-08-14] MEDS: Cefepime 2 GM VIAL ONE ×3 (05:48→21:27)
[2024-08-14] MEDS: Metoprolol Tartrate 50 MG TAB ONE (05:48)
[2024-08-14] MEDS: Vancomycin 1 GM/200 ML (FROZEN) BAG ONE ×2 (05:49→11:33)
[2024-08-14] MEDS ORDERED: Metoclopramide HCl 10 MG (2 mL) VIAL ONE (05:53)
[2024-08-14 06:14] LABS: #Basophils 0.07 10x3/uL (0.0-0.2); %Basophils 0.5 % (0.0-1.0); %Eosinophils 0.5 % (0.0-10.0); %Lymphocytes 10.7 % (21.0-51.0); %Monocytes 10.4 % (0.0-10.0); %Neutrophils 76.8 % (42.0-75.0); Hematocrit 27.8 % (42.0-52.0); Hemoglobin 8.9 g/dL (14.0-18.0); Mean Corpuscular Hemoglobin 32.2 pg (27.0-31.0); Mean Corpuscular Volume 100.7 fL (78.0-98.0); Mean Platelet Volume 10.2 fL (7.4-10.4); Platelet Count 346 10x3/uL (130-400); Red Blood Cell (RBC) Count 2.76 mill/uL (4.70-6.10)
[2024-08-14] MEDS ORDERED: Lorazepam 2 MG/ML VIAL ONE (06:30)
[2024-08-14] MEDS: Sodium Chloride 0.9% 100 ML ONE ×2 (11:33→21:27)
[2024-08-14 12:42] VITALS: BMI 25.1
[2024-08-14] MEDS: Potassium Chloride 40 MEQ in Sodium Chloride 0.45% 1,000 ML IV SCH (17:05)
[2024-08-14] MEDS: Metoprolol Tartrate 25 MG TAB PO SCH (21:22)
[2024-08-14] MEDS ORDERED: Acetaminophen 650 MG Suppository PR PRN (22:25)
[2024-08-14] MEDS: Vancomycin 1 GM in Premix 1 BAG IVPB SCH (23:11)
[2024-08-14] MEDS: Ketorolac Tromethamine 30 MG (1 mL) VIAL IVP PRN (23:24)
[2024-08-15 07:42] LABS: #Basophils 0.09 10x3/uL (0.0-0.2); %Basophils 0.6 % (0.0-1.0); %Eosinophils 0.7 % (0.0-10.0); %Lymphocytes 7.5 % (21.0-51.0); %Monocytes 8.6 % (0.0-10.0); %Neutrophils 81.3 % (42.0-75.0); Hemoglobin 9.8 g/dL (14.0-18.0); Mean Corpuscular HGB CONC 31.6 g/dL (32.0-36.0); Mean Corpuscular Hemoglobin 31.8 pg (27.0-31.0); Mean Corpuscular Volume 100.6 fL (78.0-98.0); Mean Platelet Volume 10.5 fL (7.4-10.4); Platelet Count 388 10x3/uL (130-400); RBC Distribution Width 20.3 % (11.5-14.5); Red Blood Cell (RBC) Count 3.08 mill/uL (4.70-6.10)
[2024-08-15 08:16] LABS: ALT (SGPT) 17 U/L (8-55); AST (SGOT) 51 U/L (5-34); Albumin 2.7 g/dL (3.4-4.8); Alkaline Phosphatase 135 U/L (40-110); Anion Gap 14 mmol/L (10-20); BUN (Urea Nitrogen) 9 mg/dL (8.4-25.7); Bilirubin, Total 2.4 mg/dL (0.2-1.2); Calc. Creatinine Clearance 101 mL/min (70-130); Calcium 8.5 mg/dL (7.8-10.44); Carbon Dioxide 26 mmol/L (23-31); Chloride 111 mmol/L (98-107); Estimated GFR 104; Globulin 4.3 g/dL (2.4-3.5); Glucose 84 mg/dL (83-110); Magnesium 2.1 mg/dL (1.6-2.6); Potassium 2.6 mmol/L (3.5-5.1); Sodium 148 mmol/L (136-145)
[2024-08-15] MEDS: Potassium Chloride 20 MEQ in Premix 1 BAG IVPB SCH ×2 (08:23→11:14)
[2024-08-15] MEDS: Pantoprazole 40 MG VIAL IVP SCH (08:24)
[2024-08-15] MEDS: Cefepime 1 GM in Sodium Chloride 0.9% 100 ML IVPB SCH (08:41)
[2024-08-15] MEDS: Cefepime 2 GM VIAL ONE ×2 (08:41→21:56)
[2024-08-15] MEDS: Sodium Chloride 0.9% 100 ML ONE ×2 (08:41→22:33)
[2024-08-15] MEDS: Vancomycin 1 GM/200 ML (FROZEN) BAG ONE ×2 (11:01→22:41)
[2024-08-15] MEDS ORDERED: Potassium Chloride 20 MEQ in Premix 1 BAG IVPB SCH (16:00)
[2024-08-15] MEDS ORDERED: Ipratropium/Albuterol 3 ML NEB NEB PRN (19:44)
[2024-08-15] MEDS: Ziprasidone 20 MG VIAL IM SCH (22:56)
[2024-08-15] MEDS ORDERED: Sterile Water 10 ML VIAL FS PRN (23:00)
[2024-08-16] MEDS: Vancomycin 1 GM/200 ML (FROZEN) BAG ONE ×2 (08:15→20:36)
[2024-08-16 09:14] LABS: Vancomycin, Random 15.1 ug/mL (See Comment)
[2024-08-16 12:49] LABS: #Basophils 0.06 10x3/uL (0.0-0.2); %Basophils 0.8 % (0.0-1.0); %Eosinophils 2.1 % (0.0-10.0); %Lymphocytes 14.2 % (21.0-51.0); %Monocytes 11.1 % (0.0-10.0); %Neutrophils 71.1 % (42.0-75.0); Hematocrit 31.1 % (42.0-52.0); Hemoglobin 9.9 g/dL (14.0-18.0); Mean Corpuscular HGB CONC 31.8 g/dL (32.0-36.0); Mean Corpuscular Hemoglobin 31.5 pg (27.0-31.0); Mean Platelet Volume 10.7 fL (7.4-10.4); Platelet Count 425 10x3/uL (130-400); RBC Distribution Width 20.7 % (11.5-14.5); Red Blood Cell (RBC) Count 3.14 mill/uL (4.70-6.10)
[2024-08-16] MEDS: Metoprolol Tartrate 50 MG TAB ONE (20:36)
[2024-08-17 06:15] LABS: Anion Gap 9 mmol/L (10-20); BUN (Urea Nitrogen) 9 mg/dL (8.4-25.7); Calc. Creatinine Clearance 107 mL/min (70-130); Calcium 8.1 mg/dL (7.8-10.44); Carbon Dioxide 25 mmol/L (23-31); Chloride 107 mmol/L (98-107); Estimated GFR 105; Glucose 102 mg/dL (83-110); Potassium 2.8 mmol/L (3.5-5.1); Sodium 138 mmol/L (136-145)
[2024-08-17] MEDS: Cefepime 2 GM VIAL ONE (09:47)
[2024-08-17] MEDS: Metoprolol Tartrate 50 MG TAB ONE (09:52)
[2024-08-17] MEDS: Vancomycin 1 GM/200 ML (FROZEN) BAG ONE (09:52)
[2024-08-17] MEDS: Sodium Chloride 0.9% 100 ML ONE (09:53)
[2024-08-17 11:13] LABS: Potassium 3.3 mmol/L (3.5-5.1)
[2024-08-17 13:22] LABS: Potassium 3.2 mmol/L (3.5-5.1)
[2024-08-17] MEDS: Potassium Chloride 20 MEQ TAB PO SCH (14:53)
[2024-08-18 07:04] LABS: Anion Gap 10 mmol/L (10-20); BUN (Urea Nitrogen) 8 mg/dL (8.4-25.7); Calc. Creatinine Clearance 111 mL/min (70-130); Calcium 8.2 mg/dL (7.8-10.44); Carbon Dioxide 22 mmol/L (23-31); Chloride 104 mmol/L (98-107); Estimated GFR 106; Glucose 103 mg/dL (83-110); Magnesium 1.9 mg/dL (1.6-2.6); Potassium 3.7 mmol/L (3.5-5.1); Sodium 132 mmol/L (136-145)
[2024-08-18] MEDS: Amlodipine 10 MG TAB PO SCH (08:29)
[2024-08-18] MEDS: Magnesium 2 GM/50 ML(in water) 2 GM in Premix 1 BAG IVPB SCH (08:33)
[2024-08-18] MEDS: Thiamine 100 MG TAB PO SCH (08:33)
[2024-08-19 06:54] LABS: Anion Gap 12 mmol/L (10-20); BUN (Urea Nitrogen) 14 mg/dL (8.4-25.7); Calc. Creatinine Clearance 105 mL/min (70-130); Calcium 8.1 mg/dL (7.8-10.44); Carbon Dioxide 21 mmol/L (23-31); Chloride 105 mmol/L (98-107); Estimated GFR 105; Glucose 120 mg/dL (83-110); Potassium 3.8 mmol/L (3.5-5.1); Sodium 134 mmol/L (136-145)
[2024-08-21 05:01] VITALS: BP 134/62; TEMP 97.5
[2024-08-22 17:59] LABS: Chloride 115 mmol/L (98-107); Potassium 2.9 mmol/L (3.5-5.1); Sodium 148 mmol/L (136-145)
[2024-08-22 18:00] LABS: ALT (SGPT) 20 U/L (8-55); AST (SGOT) 44 U/L (5-34); Albumin 2.4 g/dL (3.4-4.8); Alkaline Phosphatase 101 U/L (40-110); Anion Gap 15 mmol/L (10-20); BUN (Urea Nitrogen) 13 mg/dL (8.4-25.7); Bilirubin, Total 2.2 mg/dL (0.2-1.2); Calc. Creatinine Clearance 95 mL/min (70-130); Calcium 7.9 mg/dL (7.6-10.4); Carbon Dioxide 21 mmol/L (23-31); Estimated GFR 101; Globulin 3.9 g/dL (2.4-3.5); Glucose 108 mg/dL (83-110); Protein, Total 6.3 g/dL (5.8-8.1)
[2024-08-22 18:01] LABS: Vancomycin, Random 12.2 ug/mL (See Comment)
[2024-08-22 18:02] LABS: Hemoglobin 10.3 g/dL (14.0-18.0); Mean Corpuscular HGB CONC 33.2 g/dL (32.0-36.0); Mean Corpuscular Hemoglobin 31.5 pg (27.0-31.0); Mean Corpuscular Volume 94.8 fL (78.0-98.0); Platelet Count 278 10x3/uL (130-400); RBC Distribution Width 21.1 % (11.5-14.5); Red Blood Cell (RBC) Count 3.27 mill/uL (4.70-6.10)
[2024-08-22 18:03] LABS: #Basophils 0.07 10x3/uL (0.0-0.2); #Eosinophils Less than 0.03 10x3/uL (0.0-0.7); %Basophils 0.4 % (0.0-1.0); %Eosinophils 0.1 % (0.0-10.0); %Lymphocytes 7.1 % (21.0-51.0); %Monocytes 8.6 % (0.0-10.0); %Neutrophils 82.6 % (42.0-75.0)
== END 2024-08-21 10:15 | disposition home or self-care (01) | DRG 199 ==
LOC: EDBD 18:39 → ERS 18:39 → ERHOLD 21:03 → CCU 08-03 01:07 → SURG B 08-13 17:30 → SURG A 08-14 11:32
PROVIDERS: ADMIT Surgery; ATTEND Family Medicine
PROC: 0HQ0XZZ Repair Scalp Skin, External Approach (ICD-10-PCS; 2024-08-02)
PROC: 0HQDXZZ Repair Right Lower Arm Skin, External Approach (ICD-10-PCS; 2024-08-02)
PROC: 30233L1 Transfusion of Nonautologous Fresh Plasma into Peripheral Vein, Percutaneous Approach (ICD-10-PCS; 2024-08-02)
PROC: 30233N1 Transfusion of Nonautologous Red Blood Cells into Peripheral Vein, Percutaneous Approach (ICD-10-PCS; 2024-08-02)
PROC: 30233M1 Transfusion of Nonautologous Plasma Cryoprecipitate into Peripheral Vein, Percutaneous Approach (ICD-10-PCS; 2024-08-02)
PROC: 3E033XZ Introduction of Vasopressor into Peripheral Vein, Percutaneous Approach (ICD-10-PCS; 2024-08-02)
PROC: 3E02340 Introduction of Influenza Vaccine into Muscle, Percutaneous Approach (ICD-10-PCS; 2024-08-03)
PROC: 0W9930Z Drainage of Right Pleural Cavity with Drainage Device, Percutaneous Approach (ICD-10-PCS; principal; 2024-08-07)
DX: S27.2XXA Traumatic hemopneumothorax, initial encounter (principal); R57.1 Hypovolemic shock; S22.019A Unspecified fracture of first thoracic vertebra, initial encounter for closed fracture; S22.43XA Multiple fractures of ribs, bilateral, initial encounter for closed fracture; S22.029A Unspecified fracture of second thoracic vertebra, initial encounter for closed fracture; S22.039A Unspecified fracture of third thoracic vertebra, initial encounter for closed fracture; S22.049A Unspecified fracture of fourth thoracic vertebra, initial encounter for closed fracture; S22.059A Unspecified fracture of T5-T6 vertebra, initial encounter for closed fracture; S22.069A Unspecified fracture of T7-T8 vertebra, initial encounter for closed fracture; S22.21XA Fracture of manubrium, initial encounter for closed fracture; E87.1 Hypo-osmolality and hyponatremia; E87.20 Acidosis, unspecified; K56.7 Ileus, unspecified; D62 Acute posthemorrhagic anemia; F10.139 Alcohol abuse with withdrawal, unspecified; Z59.00 Homelessness unspecified; Z66 Do not resuscitate; S42.111A Displaced fracture of body of scapula, right shoulder, initial encounter for closed fracture; S01.01XA Laceration without foreign body of scalp, initial encounter; S51.011A Laceration without foreign body of right elbow, initial encounter; F10.129 Alcohol abuse with intoxication, unspecified; E87.5 Hyperkalemia; S39.022A Laceration of muscle, fascia and tendon of lower back, initial encounter; Y90.8 Blood alcohol level of 240 mg/100 ml or more; E16.2 Hypoglycemia, unspecified; E87.6 Hypokalemia; G31.2 Degeneration of nervous system due to alcohol; Z71.41 Alcohol abuse counseling and surveillance of alcoholic; R53.81 Other malaise; V03.10XA Pedestrian on foot injured in collision with car, pick-up truck or van in traffic accident, initial encounter; Y93.89 Activity, other specified; Y92.89 Other specified places as the place of occurrence of the external cause; R50.9 Fever, unspecified; Z23 Encounter for immunization
CPT/HCPCS: 12005; 32551; 36415; 36416; 36430; 36556; 51702; 70450; 70498; 71045; 71250; 71260; 72125; 72170; 74018; 74177; 80048; 80053; 80202; 80306; 80307; 81001; 82140; 82248; 82533; 82565; 83690; 83735; 83880; 84100; 84484; 85025; 85060; 85384; 85610; 85730; 86850; 86900; 86901; 87040; 90471; 90715; 93005; 93306; 94640; 94760; 96365; 96366; 96375; 97139; G0390; J0132; J0360; J0692; J1650; J1885; J1940; J2060; J2272; J2470; J2765; J3010; J3370; J3370-JW; J3411; J3475; J3480; J3486; J7030; J7050; J7620; J7999; P9016; P9047; P9048; P9059; Q9967